=== PATIENT | male | born 1965 | race Caucasian/White ===

== ENCOUNTER → 2016-09-25 | Outpatient (REF) | payer BC | LOC: M SMT 13:16 | PROVIDERS: ATTEND Nurse Practitioner Family | DX: R31.9 Hematuria, unspecified (principal) ==

== ENCOUNTER → 2019-04-01 | Outpatient (CLI) | payer BC ==
--- NOTE | 2019-04-03 17:45 | SLEEPCENT ---
DATE OF PROCEDURE: 04/01/2019 ORDERED BY: Maynor Esparza PA-C Nocturnal polysomnography was performed for titration of pressure therapy in this patient with obstructive sleep apnea syndrome. For testing the patient was fit with a ResMed Quattro full face mask of medium size, 10 cm of water pressure were applied to the circuit and the lights were extinguished. 8 hours and 25 minutes of data were reviewed. There were 389.5 minutes of sleep identified. Sleep latency was short at 7.5 minutes. Rapid eye movement (REM) latency was normal at 102 minutes. Sleep architecture was fairly good with two REM cycles. Overall sleep efficiency was 86.2%. The electrocardiogram showed a sinus rhythm with an average heart rate of 50 beats per minute. EEG showed normal waveforms for awake and sleep. Respiratory events were best palliated with continuous positive airway pressure (CPAP) of +12. There was some activity in the limb EMG leads. Limb movement arousal index was 5.7. IMPRESSION: Obstructive sleep apnea syndrome (G47.33). RECOMMENDATIONS: Nightly use of pressure therapy 12 cm of water.
== END ==
LOC: M SLEEP 19:32
PROVIDERS: ATTEND Physician Assistant
DX: G47.33 Obstructive sleep apnea (adult) (pediatric) (principal)

== ENCOUNTER → 2019-06-24 | Outpatient (CLI) | payer BC ==
--- NOTE | 2019-06-25 03:58 | REP ---
Clinical: Dyspnea on exertion . Comparison: 10/04/2011 . Technique: PA and lateral. Findings: The mediastinum and cardiac silhouette are normal. The lung rodriguez are clear and without acute consolidation, effusion, or pneumothorax. The skeletal structures are intact and normal. Impression: 1. No acute cardiopulmonary process. Electronically Signed by Jose Cruz Melo MD 06/25/2019 03:49 A
== END ==
LOC: M LRY 11:18
PROVIDERS: ATTEND Physician Assistant
DX: R06.02 Shortness of breath (principal)

== ENCOUNTER → 2019-10-15 | Outpatient (CLI) | payer BC ==
[~2019-10-15] MED LIST: METHACHOLINE KIT (J7674) INH ONE
--- NOTE | 2019-10-15 10:12 | PFTRPT ---
Site: [facility], [address] [place], [place], [address] ID: [id number] Name: AMELIA BROWN Visit Date: 10/15/2019 Second ID: [id number] Referring Doctor: Cristi Bland DO Reviewing Doctor: JoseE lias Hoang MD Core Man: Tamia Figueroa Age: 54 : 1965 Sex: Male Race: Height: 71.00 Inches Weight: 258.00 Lbs BSA: 2.35 Order IDs: [id number] Requested Test(s): <RESP-PFT.BROCHOPROV> Diagnosis: R06 of albuterol for post bronchodilator. Review Status: Not Reviewed Pre-Bronch Post-Bronch Pred Actual %Pred Actual %Chng SPIROMETRY FVC (L) 5.09 4.46 87 4.37 -2 FEV1 (L) 3.90 3.42 87 3.35 -2 FEV1/FVC (%) 77 77 99 77 FEF 25% (L/sec) 8.44 6.62 78 6.22 -6 FEF 50% (L/sec) 5.28 3.63 68 3.53 -2 FEF 75% (L/sec) 1.73 1.19 68 0.99 -16 FEF 25-75% (L/sec) 3.31 2.85 85 2.59 -9 FEF Max (L/sec) 9.78 7.99 81 8.17 2 FIVC (L) 4.47 4.47 FIF 50% (L/sec) 4.85 5.70 117 3.02 -46 FIF Max (L/sec) 5.75 3.43 -40 Expiratory Time (sec) 7.57 8.04 6 Back Extrap Vol (L) 0.11 0.10 -5 Time To FEFmax (sec) 0.069 0.064 -6
== END ==
LOC: M CARPUL 09-30 13:48
PROVIDERS: ATTEND Physician Assistant
DX: R06.00 Dyspnea, unspecified (principal)
CPT/HCPCS: 94070; J7674

== ENCOUNTER → 2021-01-13 | Outpatient (CLI) | payer BC | LOC: M LABSMTC 09:09 | PROVIDERS: ATTEND Internal Medicine Cardiovascular Disease | DX: Z11.52 Encounter for screening for COVID-19 (principal) ==